=== PATIENT | female | born 2005 | race African-American/Black ===

== ENCOUNTER 2025-04-16 07:06 | Emergency (ER) | payer SELFPAY ==
[~2025-04-16] VITALS: Ht 167.6 cm; Wt 54.0 kg
[2025-04-16 07:25] VITALS: TEMP 36.9; O2SAT 98
[2025-04-16 07:44] LABS: BASOPHILS % 0.2 % (0.0-2.0); EOSINOPHILS % 0.7 % (0.0-5.0); HEMATOCRIT. 36.2 % (36.0-48.0); HEMOGLOBIN. 12.2 g/dL (12.0-16.0); LYMPHOCYTES % 31.9 % (20.0-50.0); MEAN CORPUSCULAR HEMOGLOBIN 29.2 pg (28.0-32.0); MEAN CORPUSCULAR HGB CONC 33.7 g/dL (31.0-37.0); MEAN CORPUSCULAR VOLUME 86.5 fL (81.0-99.0); MONOCYTES % 7.3 % (2.0-8.0); NEUTROPHILS % 59.9 % (40.0-76.0); PLATELET 170 x1000/uL (130-400); RED BLOOD CELL COUNT 4.18 mill/uL (4.2-5.4); RED CELL DISTRIBUTION WIDTH 14.1 % (11.6-14.6); WHITE BLOOD COUNT 9.9 x1000/uL (4.5-11.0)
[2025-04-16 07:45] VITALS: TEMP 98.4
[2025-04-16] MEDS: ACETAMINOPHEN 325MG TABLET PO ONE (07:45)
[2025-04-16 07:51] LABS: CHLORIDE 105 mEq/L (98-107); SODIUM 137 mEq/L (136-145)
[2025-04-16 07:52] LABS: CALCIUM 9.3 mg/dL (8.7-10.4); CARBON DIOXIDE 23 mEq/L (21-32)
[2025-04-16 07:57] LABS: CREATININE 0.7 mg/dL (0.6-1.0); GLUCOSE 86 mg/dL (70-105); UREA NITROGEN BLOOD < 5 mg/dL (9-23)
[2025-04-16 09:01] LABS: CLARITY URINE TURBID (CLEAR); COLOR URINE ORANGE (YELLOW); GLUCOSE URINE NEGATIVE (NEGATIVE); KETONES URINE NEGATIVE (NEGATIVE); LEUKOCYTE ESTERASE URINE 3+ (NEGATIVE); NITRITE URINE POSITIVE (NEGATIVE); OCCULT BLOOD URINE 3+ (NEGATIVE); PH URINE 5.5 (4.5-8.0); PROTEIN URINE 3+ (NEGATIVE)
[2025-04-16 09:05] LABS: UCG SCREEN POSITIVE
[2025-04-16 09:06] LABS: UCG KIT EXPIRATION DATE 11/27/2026
[2025-04-16 09:11] LABS: BACTERIA URINE 4+; SQUAMOUS EPITHELIAL CELL URINE FEW /lpf (RARE/1+)
[2025-04-16 09:12] LABS: RBC URINE TNTC /hpf (0-2); WBC URINE TNTC /hpf (0-2)
[2025-04-16] MEDS ORDERED: TOPUD PO (09:13)
[2025-04-16] MEDS ORDERED: NITR100C PO (09:14)
[2025-04-16 09:38] VITALS: BP 107/64; PULSE 96; RESP 18; O2SAT 100
== END 2025-04-16 09:55 | disposition home or self-care (01) ==
LOC: ER 07:06
DX: O20.0 Threatened abortion (principal); O23.41 Unspecified infection of urinary tract in pregnancy, first trimester; Z3A.13 13 weeks gestation of pregnancy; Z79.899 Other long term (current) drug therapy
CPT/HCPCS: 36415; 76801; 80048; 81003; 81025; 84702; 85025; 86850; 86900; 87077; 87186; 99284